=== PATIENT | female | born 1965 | race Caucasian/White ===

== ENCOUNTER 2017-07-02 22:30 | Emergency (ER) | payer OTHER ==
[2017-07-03 00:55] LABS: ADD MAN DIFF? NO
[2017-07-03 01:08] LABS: WHITE BLOOD COUNT 9.2 10^3/ul (4.8-10.8)
[2017-07-03 01:08] LABS: BASOPHIL # 0.1 10^3/ul (0.0-0.1); BASOPHILS % 0.9 % (0.0-2.0); EOSINOPHILS # 0.6 10^3/ul (0.0-0.5); EOSINOPHILS % 6.1 % (0.0-7.0); HEMATOCRIT 36.6 % (37.0-47.0); HEMOGLOBIN 12.2 g/dl (12.0-16.0); LYMPHOCYTES # 3.6 10^3/ul (0.8-2.9); LYMPHOCYTES % 39.6 % (15.0-51.0); MEAN CORPUSCULAR HEMOGLOBIN 30.5 pg (29.0-33.0); MEAN CORPUSCULAR HGB CONC 33.3 g/dl (32.0-37.0); MEAN CORPUSCULAR VOLUME 91.5 fl (82.0-101.0); MEAN PLATELET VOLUME 9.6 fl (7.4-10.4); MONOCYTE # 0.7 10^3/ul (0.3-0.9); MONOCYTES % 7.9 % (0.0-11.0); NEUTROPHIL # 4.2 10^3/ul (1.6-7.5); NEUTROPHILS % 45.3 % (39.0-77.0); PLATELET COUNT 345 10^3/UL (140-415); RED CELL DISTRIBUTION WIDTH 12.4 % (11.5-14.5)
[2017-07-03 01:44] LABS: ANION GAP 17 (8-16); BLOOD UREA NITROGEN 18 mg/dl (7-20); CALCIUM 9.5 mg/dl (8.4-10.2); CARBON DIOXIDE 26 mmol/L (21-31); CHLORIDE 105 mmol/L (97-110); CREATININE 0.65 mg/dl (0.44-1.00); GLUCOSE 116 mg/dl (70-220); POTASSIUM 4.1 mmol/L (3.5-5.1); SODIUM 144 mmol/L (135-144)
[2017-07-03] MEDS: DIAZEPAM 5 MG/ML SYG IM (01:44)
[2017-07-03] MEDS: ACETAMINOPHEN 325 MG TAB PO (01:44)
[2017-07-03 01:47] LABS: TROPONIN-I < 0.012 ng/ml (0.00-0.12)
== END 2017-07-03 02:26 | disposition home or self-care (01) ==
LOC: E/R 22:30
DX: R07.9 Chest pain, unspecified (principal); M79.1 Myalgia; E03.9 Hypothyroidism, unspecified
CPT/HCPCS: 71010; 80048; 84484; 85025; 93005; 96372; 99285-25

== ENCOUNTER 2018-12-21 22:29 | Emergency (ER) | payer OTHER ==
[2018-12-22] MEDS: ACETAMINOPHEN 325 MG TAB PO (01:47)
== END 2018-12-22 03:16 | disposition home or self-care (01) ==
LOC: FTE 22:29
DX: S90.121A Contusion of right lesser toe(s) without damage to nail, initial encounter (principal); E03.9 Hypothyroidism, unspecified; W22.01XA Walked into wall, initial encounter; Y92.9 Unspecified place or not applicable
CPT/HCPCS: 73630; 99283-25